=== PATIENT | female | born 1955 | race Caucasian/White ===

== ENCOUNTER → 2024-08-18 07:34 | Outpatient (REF) | payer MEDICARE, SELFPAY | LOC: HWWDC 07:34 | PROVIDERS: ATTENDING PHYSICIAN Obstetrics & Gynecology Gynecology; FAMILY PHYSICIAN Family Medicine | DX: Z12.31 Encounter for screening mammogram for malignant neoplasm of breast (principal) | CPT/HCPCS: 77063; 77067 ==

== ENCOUNTER → 2025-04-03 06:29 | Outpatient (REF) | payer MEDICARE, SELFPAY ==
[2025-04-03 08:13] LABS: ALT (SGPT) 48 U/L (0-35); AST (SGOT) 35 U/L (14-36); Albumin 4.1 g/dl (3.5-5.0); Alkaline Phosphatase 59 U/L (38-126); Blood Urea Nitrogen 21 mg/dl (7-17); Calcium 9.9 mg/dl (8.4-10.2); Carbon Dioxide 31 mmol/L (22-30); Chloride 106 mmol/L (98-107); Glucose 87 mg/dl (70-99); Potassium 4.3 mmol/L (3.5-5.1); Sodium 141 mmol/L (135-145); Total Bilirubin 0.5 mg/dl (0.2-1.3); Total Protein 6.5 g/dl (6.3-8.2); eGFR > 60.00
== END ==
LOC: REG 06:29
PROVIDERS: FAMILY PHYSICIAN Family Medicine
DX: I77.4 Celiac artery compression syndrome (principal)
CPT/HCPCS: 36415; 80053

== ENCOUNTER → 2025-04-06 07:09 | Outpatient (REF) | payer MEDICARE, SELFPAY | LOC: RAD 07:09 | PROVIDERS: FAMILY PHYSICIAN Family Medicine | DX: I77.74 Dissection of vertebral artery (principal) | CPT/HCPCS: 70496; 70498; Q9967 ==

== ENCOUNTER → 2025-09-05 08:52 | Outpatient (REF) | payer MEDICARE, SELFPAY | LOC: HWWDC 08:52 | PROVIDERS: ATTENDING PHYSICIAN Obstetrics & Gynecology Gynecology; FAMILY PHYSICIAN Family Medicine | DX: Z12.31 Encounter for screening mammogram for malignant neoplasm of breast (principal) | CPT/HCPCS: 77063; 77067 ==

== ENCOUNTER → 2025-09-11 07:42 | Outpatient (REF) | payer MEDICARE, SELFPAY | LOC: HWRCS 07:42 | PROVIDERS: ATTENDING PHYSICIAN Internal Medicine Cardiovascular Disease; FAMILY PHYSICIAN Family Medicine | DX: I34.0 Nonrheumatic mitral (valve) insufficiency (principal); I35.8 Other nonrheumatic aortic valve disorders | CPT/HCPCS: 93306 ==

== ENCOUNTER → 2025-11-09 08:03 | Outpatient (REF) | payer MEDICARE, SELFPAY | LOC: RCS 08:03 | PROVIDERS: ATTENDING PHYSICIAN Internal Medicine Cardiovascular Disease; FAMILY PHYSICIAN Family Medicine | DX: I77.3 Arterial fibromuscular dysplasia (principal); R06.09 Other forms of dyspnea | CPT/HCPCS: 93017; 93350 ==